=== PATIENT | female | born 1960 | race Caucasian/White ===

== ENCOUNTER 2023-11-16 18:30 | Inpatient (IN) | payer OTHER ==
[~2023-11-16] VITALS: Ht 124.5 cm; Wt 91.2 kg
[2023-11-16 18:33] VITALS: BP 168/89; PULSE 101; RESP 18; TEMP 97.7; O2SAT 95
[2023-11-16] MEDS: NACL 0.9% 1,000 ML IV ONE (19:16)
[2023-11-16] MEDS: MECLIZINE 25 MG TAB PO ONE (19:18)
[2023-11-16 19:21] LABS: BASOPHILS % (AUTO) 0.4 % (0.0-2.0); EOSINOPHILS # (AUTO) 0.2 K/uL (0-0.4); EOSINOPHILS % (AUTO) 2.8 % (0.0-4.0); HEMATOCRIT 39.1 % (36-48); HEMOGLOBIN 13.4 g/dL (12.0-16.0); LYMPHOCYTES # (AUTO) 1.6 K/uL (2.5-16.5); LYMPHOCYTES % (AUTO) 18.6 % (20.5-51.1); MEAN CORPUSCULAR HEMOGLOBIN 29 pg (27-31); MEAN CORPUSCULAR HGB CONC 34 g/dL (33-37); MEAN CORPUSCULAR VOLUME 83.6 fL (80-94); MONOCYTES # (AUTO) 0.6 K/uL (0.8-1.0); MONOCYTES % (AUTO) 7.1 % (1.7-9.3); NEUTROPHILS # (AUTO) 6.3 K/uL (1.8-7.7); NEUTROPHILS % (AUTO) 71.1 % (42.2-75.2); PLATELET COUNT (AUTO) 264 K/uL (140-450); RED BLOOD CELL COUNT(AUTO) 4.68 MIL/uL (4.20-5.40); RED CELL DISTRIBUTION WIDTH 14.5 % (11.6-13.7); WHITE BLOOD COUNT (AUTO) 8.8 K/uL (4.8-10.8)
[2023-11-16 19:31] LABS: CHLORIDE 100 mmol/L (98-107); GFR ARICAN-AMERICAN 72 mL/min (>90); GFR NON ARICAN-AMERICAN 60 mL/min (>90); POTASSIUM 3.8 mmol/L (3.5-5.1); SODIUM SERUM 135 mmol/L (136-145); UREA NITROGEN, BLOOD 17 mg/dL (7-18)
[2023-11-16 19:39] LABS: ALANINE AMINOTRANSFERASE 28 U/L (12-78); ALBUMIN 3.9 g/dL (3.4-5.0); ALKALINE PHOSPHATASE 86 U/L (50-136); ASPARTATE AMINOTRANSFERASE 12 U/L (15-37); TOTAL BILIRUBIN 0.3 mg/dL (0.0-1.0); TOTAL PROTEIN, SERUM 7.9 g/dL (6.4-8.2)
[2023-11-16 19:44] LABS: ANION GAP 13.8 (8-16); CALCIUM 9.5 mg/dL (8.5-10.1); GLUCOSE 177 mg/dL (74-106)
[2023-11-16 19:52] LABS: APPEARANCE,URINE HAZY (CLEAR); BILIRUBIN,URINE NEGATIVE (NEGATIVE); BLOOD, URINE 2+ (NEGATIVE); COLOR,URINE YELLOW (YELLOW); LEUKOCYTE ESTERASE ,URINE 2+ (NEGATIVE); NITRITE, URINE POSITIVE (NEGATIVE); PROTEIN,URINE NEGATIVE (NEGATIVE); UGLUCOSE NEGATIVE (NEGATIVE); UROBILINOGEN,URINE 0.2 EU/dL (0.2 - 1)
[2023-11-16 20:03] LABS: AMPHETAMINE, URINE NEGATIVE ng/ml (NEG <=1000); BARBITURATE, URINE NEGATIVE ng/ml (NEG <=200); BENZODIAZEPINE, URINE NEGATIVE ng/mL (NEG <=200); CANNABINOID, URINE NEGATIVE ng/mL (NEG <=50); COCAINE, URINE NEGATIVE ng/mL (NEG <=300); OPIATE, URINE NEGATIVE ng/mL (NEG <=2000); PHENCYCLIDINE SCREEN,URINE NEGATIVE ng/mL (NEG <=25)
[2023-11-16 20:05] LABS: BACTERIA,URINE 4+ /HPF (None Seen); MUCUS,URINE 1+ /LPF (None Seen); SQUAMOUS EPITHELIAL CELL,UR 4-10 (MOD) /LPF (0-3 (FEW))
[2023-11-16] MEDS ORDERED: cefTRIAXone 1,000 MG VIAL ONE (21:03)
[2023-11-16] MEDS: KETOROLAC 30 MG/ML VIAL IVP ONE (22:52)
[2023-11-16] MEDS: METOCLOPRAMIDE 10 MG/2 ML INJ VIAL IVP ONE (22:52)
[2023-11-16] MEDS ORDERED: LORazepam 1 MG TAB PO PRN (23:35)
[2023-11-17] MEDS: POTASSIUM CHL 40 MEQ/ D5-1/2NS 1,000 ML IV SCH (00:33)
[2023-11-17 01:05] VITALS: BP 106/70; PULSE 77; RESP 18; RESP 20; TEMP 97.6; O2SAT 96; O2SAT 97
[2023-11-17 04:00] VITALS: BP 108/59; PULSE 70; PULSE 79; RESP 18; TEMP 97.3; O2SAT 96
[2023-11-17 06:52] LABS: BASOPHILS % (AUTO) 0.3 % (0.0-2.0); EOSINOPHILS # (AUTO) 0.4 K/uL (0-0.4); EOSINOPHILS % (AUTO) 4.9 % (0.0-4.0); HEMATOCRIT 34.8 % (36-48); HEMOGLOBIN 11.9 g/dL (12.0-16.0); LYMPHOCYTES # (AUTO) 2.1 K/uL (2.5-16.5); LYMPHOCYTES % (AUTO) 23.8 % (20.5-51.1); MEAN CORPUSCULAR HEMOGLOBIN 29 pg (27-31); MEAN CORPUSCULAR HGB CONC 34 g/dL (33-37); MEAN CORPUSCULAR VOLUME 84.2 fL (80-94); MONOCYTES # (AUTO) 0.8 K/uL (0.8-1.0); MONOCYTES % (AUTO) 8.7 % (1.7-9.3); NEUTROPHILS # (AUTO) 5.5 K/uL (1.8-7.7); NEUTROPHILS % (AUTO) 62.3 % (42.2-75.2); PLATELET COUNT (AUTO) 226 K/uL (140-450); RED BLOOD CELL COUNT(AUTO) 4.14 MIL/uL (4.20-5.40); RED CELL DISTRIBUTION WIDTH 14.3 % (11.6-13.7); WHITE BLOOD COUNT (AUTO) 8.8 K/uL (4.8-10.8)
[2023-11-17 07:10] LABS: ALBUMIN 3.1 g/dL (3.4-5.0); ANION GAP 12.9 (8-16); CALCIUM 8.3 mg/dL (8.5-10.1); CARBON DIOXIDE 22.8 mmol/L (21-32); MAGNESIUM 1.7 mg/dL (1.8-2.4); POTASSIUM 3.7 mmol/L (3.5-5.1); TOTAL BILIRUBIN 0.3 mg/dL (0.0-1.0); TOTAL PROTEIN, SERUM 6.6 g/dL (6.4-8.2)
[2023-11-17 08:00] VITALS: BP 107/45; PULSE 78; RESP 18; TEMP 97.2; O2SAT 95
[2023-11-17] MEDS: DOCUSATE SODIUM 100 MG GELCAP PO SCH (09:18)
[2023-11-17] MEDS: ENOXAPARIN 40 MG/0.4 ML SYR SUBQ SCH (09:19)
[2023-11-17] MEDS ORDERED: MECL-303 PO (11:34)
[2023-11-17] MEDS ORDERED: HUM SUBQ (11:34)
[2023-11-17] MEDS ORDERED: BUPR300T70 PO (11:34)
[2023-11-17] MEDS ORDERED: [UNRECOGNIZED DRUG - CODE] SQ (11:34)
[2023-11-17] MEDS ORDERED: PANT40EC PO (11:34)
[2023-11-17] MEDS ORDERED: ATOR20TA PO (11:46)
[2023-11-17] MEDS ORDERED: AMLO5TAB PO (11:46)
[2023-11-17] MEDS ORDERED: ENAL-197 PO (11:46)
[2023-11-17] MEDS: MAG SULF 2000 MG/WATER PREMIX 50 ML IV SCH (11:50)
[2023-11-17 12:00] VITALS: BP 109/57; PULSE 82; RESP 18; TEMP 97.9; O2SAT 97
[2023-11-17] MEDS: ACETAMINOPHEN 325 MG TAB PO PRN (12:07)
[2023-11-17] MEDS ORDERED: DEXTROSE 50% 50 ML SYR IVP PRN ×2 (12:15→12:20)
[2023-11-17] MEDS: INSULIN LISPRO SLIDING SCALE 100 UNITS/ML VIAL SUBQ PRN (12:56)
[2023-11-17 16:00] VITALS: BP 125/54; PULSE 80; RESP 18; TEMP 97.9; O2SAT 96
[2023-11-17] MEDS: BLOOD GLUCOSE MONITORING 1 DEV DEV FS SCH (16:07)
[2023-11-17] MEDS ORDERED: BLOOD GLUCOSE MONITORING 1 DEV DEV FS SCH (16:30)
[2023-11-17 20:00] VITALS: BP 117/59; PULSE 82; PULSE 86; RESP 18; TEMP 97.9; O2SAT 95
[2023-11-17] MEDS: HYDROcodone/APAP 5/325 MG 1 TAB TAB PO PRN (20:51)
[2023-11-17] MEDS: ZOLPIDEM 5 MG TAB PO PRN (20:51)
[2023-11-17] MEDS: MEDS-TO-BEDS MC SCH (21:00)
[2023-11-18 04:00] VITALS: BP 130/54; PULSE 74; RESP 18; TEMP 97; O2SAT 97
[2023-11-18 08:00] VITALS: BP 129/53; PULSE 79; RESP 18; TEMP 97.1; O2SAT 95; O2SAT 99
[2023-11-18 08:02] LABS: BASOPHILS % (AUTO) 0.5 % (0.0-2.0); EOSINOPHILS # (AUTO) 0.5 K/uL (0-0.4); EOSINOPHILS % (AUTO) 7.9 % (0.0-4.0); HEMATOCRIT 35.2 % (36-48); HEMOGLOBIN 11.9 g/dL (12.0-16.0); LYMPHOCYTES # (AUTO) 1.7 K/uL (2.5-16.5); LYMPHOCYTES % (AUTO) 29.2 % (20.5-51.1); MEAN CORPUSCULAR HEMOGLOBIN 29 pg (27-31); MEAN CORPUSCULAR HGB CONC 34 g/dL (33-37); MEAN CORPUSCULAR VOLUME 84.6 fL (80-94); MONOCYTES # (AUTO) 0.5 K/uL (0.8-1.0); MONOCYTES % (AUTO) 9.2 % (1.7-9.3); NEUTROPHILS # (AUTO) 3.1 K/uL (1.8-7.7); NEUTROPHILS % (AUTO) 53.2 % (42.2-75.2); PLATELET COUNT (AUTO) 217 K/uL (140-450); RED BLOOD CELL COUNT(AUTO) 4.16 MIL/uL (4.20-5.40); RED CELL DISTRIBUTION WIDTH 14.6 % (11.6-13.7); WHITE BLOOD COUNT (AUTO) 5.8 K/uL (4.8-10.8)
[2023-11-18 08:42] LABS: ALBUMIN 3.1 g/dL (3.4-5.0); ANION GAP 9.5 (8-16); CALCIUM 8.3 mg/dL (8.5-10.1); CARBON DIOXIDE 26.9 mmol/L (21-32); CREATININE 0.9 mg/dL (0.6-1.3); MAGNESIUM 1.9 mg/dL (1.8-2.4); POTASSIUM 4.4 mmol/L (3.5-5.1); TOTAL BILIRUBIN 0.3 mg/dL (0.0-1.0); TOTAL PROTEIN, SERUM 6.9 g/dL (6.4-8.2)
[2023-11-18] MEDS: ONDANSETRON 4 MG/2 ML VIAL IVP PRN (11:42)
[2023-11-18 16:52] VITALS: BP 105/55; PULSE 60; RESP 18; TEMP 98.2; O2SAT 62
[2023-11-18 20:00] VITALS: BP 124/58; PULSE 79; RESP 18; TEMP 97.1; O2SAT 95
[2023-11-19 04:00] VITALS: BP 123/50; PULSE 70; RESP 18; TEMP 96.9; O2SAT 94
[2023-11-19 07:00] LABS: BASOPHILS % (AUTO) 0.5 % (0.0-2.0); EOSINOPHILS # (AUTO) 0.5 K/uL (0-0.4); EOSINOPHILS % (AUTO) 9.3 % (0.0-4.0); HEMATOCRIT 36.1 % (36-48); HEMOGLOBIN 12.3 g/dL (12.0-16.0); LYMPHOCYTES # (AUTO) 1.8 K/uL (2.5-16.5); LYMPHOCYTES % (AUTO) 30.4 % (20.5-51.1); MEAN CORPUSCULAR HEMOGLOBIN 29 pg (27-31); MEAN CORPUSCULAR HGB CONC 34 g/dL (33-37); MEAN CORPUSCULAR VOLUME 84.6 fL (80-94); MONOCYTES # (AUTO) 0.5 K/uL (0.8-1.0); MONOCYTES % (AUTO) 8.5 % (1.7-9.3); NEUTROPHILS % (AUTO) 51.3 % (42.2-75.2); PLATELET COUNT (AUTO) 221 K/uL (140-450); RED BLOOD CELL COUNT(AUTO) 4.27 MIL/uL (4.20-5.40); RED CELL DISTRIBUTION WIDTH 14.7 % (11.6-13.7); WHITE BLOOD COUNT (AUTO) 5.9 K/uL (4.8-10.8)
[2023-11-19 07:11] LABS: ALBUMIN 3.1 g/dL (3.4-5.0); ANION GAP 9.7 (8-16); CALCIUM 8.4 mg/dL (8.5-10.1); CARBON DIOXIDE 25.9 mmol/L (21-32); CREATININE 0.9 mg/dL (0.6-1.3); MAGNESIUM 1.7 mg/dL (1.8-2.4); POTASSIUM 4.6 mmol/L (3.5-5.1); TOTAL BILIRUBIN 0.3 mg/dL (0.0-1.0)
[2023-11-19 08:00] VITALS: BP 112/63; PULSE 65; RESP 18; TEMP 98.3; O2SAT 94; O2SAT 95
[2023-11-19] MEDS ORDERED: INSULIN LISPRO 100 UNITS/ML VIAL SUBQ SCH (11:30)
[2023-11-19] MEDS: MECLIZINE 25 MG TAB PO PRN (13:18)
[2023-11-19] MEDS: MAG SULF 2000 MG/WATER PREMIX 50 ML IV SCH (13:21)
[2023-11-19 17:00] VITALS: BP 111/45; PULSE 54; RESP 18; TEMP 98.2; O2SAT 98
[2023-11-19 20:00] VITALS: BP 119/54; PULSE 72; RESP 18; TEMP 96.9; O2SAT 72; O2SAT 97
[2023-11-20 04:00] VITALS: BP 115/59; PULSE 68; RESP 18; TEMP 97.4; O2SAT 97
[2023-11-20 06:46] LABS: BASOPHILS % (AUTO) 0.4 % (0.0-2.0); EOSINOPHILS # (AUTO) 0.5 K/uL (0-0.4); HEMATOCRIT 36.5 % (36-48); HEMOGLOBIN 12.4 g/dL (12.0-16.0); LYMPHOCYTES % (AUTO) 29.4 % (20.5-51.1); MEAN CORPUSCULAR HEMOGLOBIN 29 pg (27-31); MEAN CORPUSCULAR HGB CONC 34 g/dL (33-37); MEAN CORPUSCULAR VOLUME 84.8 fL (80-94); MONOCYTES # (AUTO) 0.5 K/uL (0.8-1.0); MONOCYTES % (AUTO) 7.2 % (1.7-9.3); NEUTROPHILS # (AUTO) 3.7 K/uL (1.8-7.7); PLATELET COUNT (AUTO) 215 K/uL (140-450); RED BLOOD CELL COUNT(AUTO) 4.31 MIL/uL (4.20-5.40); RED CELL DISTRIBUTION WIDTH 14.8 % (11.6-13.7); WHITE BLOOD COUNT (AUTO) 6.8 K/uL (4.8-10.8)
[2023-11-20 07:21] LABS: ALBUMIN 3.1 g/dL (3.4-5.0); ANION GAP 9.5 (8-16); CALCIUM 8.8 mg/dL (8.5-10.1); CARBON DIOXIDE 31.3 mmol/L (21-32); POTASSIUM 4.8 mmol/L (3.5-5.1); TOTAL BILIRUBIN 0.2 mg/dL (0.0-1.0); TOTAL PROTEIN, SERUM 7.2 g/dL (6.4-8.2)
[2023-11-20 08:00] VITALS: PULSE 65; RESP 18; O2SAT 97
[2023-11-20] MEDS: PANTOPRAZOLE 40 MG TABEC PO SCH (08:41)
[2023-11-20] MEDS: ATORVASTATIN 20 MG TAB PO SCH (08:41)
[2023-11-20] MEDS: amLODIPine 5 MG TAB PO SCH (08:41)
[2023-11-20 08:52] VITALS: BP 114/63; PULSE 65; RESP 18; TEMP 97.5; O2SAT 97
[2023-11-20] MEDS ORDERED: CEPH-588 PO (10:46)
[2023-11-20 10:55] VITALS: BP 114/63; PULSE 65; RESP 18; TEMP 97.5
== END 2023-11-20 12:40 | disposition home or self-care (01) | DRG 463 ==
LOC: MED 18:30 → EDBD 18:30 → MTU 23:31
PROVIDERS: ADMIT Hospitalist; ATTEND Hospitalist
DX: N30.00 Acute cystitis without hematuria (principal); E87.1 Hypo-osmolality and hyponatremia; E11.9 Type 2 diabetes mellitus without complications; R71.0 Precipitous drop in hematocrit; E78.5 Hyperlipidemia, unspecified; R42 Dizziness and giddiness; I10 Essential (primary) hypertension; Z88.6 Allergy status to analgesic agent; Z79.4 Long term (current) use of insulin; Z79.899 Other long term (current) drug therapy
CPT/HCPCS: 36415; 70450; 80053; 80305; 81001; 82948; 83735; 84484; 85025; 87081; 87086; 87186; 93005; 96361; 96365; 97110; 97112; 97163-GP; 97530; 99291; J0696; J1650; J1815; J1885; J2405; J2765; J3475; J7060; J8597